=== PATIENT | male | born 1990 | race Hispanic/Latino ===

== ENCOUNTER 2019-04-07 | Emergency (ER) | payer OTHER ==
[2019-04-07 14:27] LABS: HEMATOCRIT 47.3 % (39.0-50.0); HEMOGLOBIN 15.9 g/dl (14.0-18.0); IMMATURE GRANULOCYTES 0.2 % (0.0-5.0); MEAN CELL VOLUME 89.6 fL CALC (80.0-100.0); MEAN CORPUSCULAR HGB 30.1 pG CALC (26.0-32.0); MEAN CORPUSCULAR HGB CONC 33.6 g/L CALC (32.0-36.0); NEUT# 5.26 thou/uL (1.82-7.42); RED BLOOD COUNT 5.28 mill/uL (4.70-6.10); RED CELL DISTRI WIDTH 12.5 % (11.5-15.5)
[2019-04-07 14:51] LABS: ALBUMIN 5.1 g/dL (3.2-5.0); ALKALINE PHOSPHATASE 129 u/l (38-126); AMYLASE 190 u/l (30-110); ANION GAP 20 (6-22 (CALC)); BILIRUBIN, TOTAL 0.4 mg/dL (0.0-1.4); BUN 5 mg/dL (9-20); BUN/CREATININE RATIO 6 (12-20 (CALC)); CARBON DIOXIDE 23 mmol/l (22-30); CHLORIDE 105 mmol/l (95-108); CPK 236 u/l (52-200); CREATININE 0.8 mg/dL (0.7-1.3); GFR > 60 ML/MIN (>=60 (CALC)); GFR FOR AFR.AMER. > 60 ML/MIN (>=60 (CALC)); LIPASE 90 u/l (23-300); MAGNESIUM 2.1 mg/dL (1.6-2.3); POTASSIUM 4.2 mmol/l (3.5-5.1); SGOT/AST 41 u/l (17-59); SODIUM 144 mmol/l (137-146); TOTAL PROTEIN 9.4 g/dL (6.3-8.2)
[2019-04-07 14:56] LABS: ACT PARTIAL THROMBO TIME 27.6 SECONDS (20.0-32.5); PROTHROMBIN TIME 10.4 SECONDS (9.0-12.5)
[2019-04-07 15:03] LABS: ETHYL ALCOHOL 430 mg/dl (0-30)
[2019-04-07 17:37] LABS: URINE BILIRUBIN - DIPSTICK NEGATIVE (NEGATIVE); URINE BLOOD DIPSTICK NEGATIVE (NEGATIVE); URINE COLOR YELLOW; URINE GLUCOSE - DIPSTICK NEGATIVE (NEGATIVE); URINE KETONE NEGATIVE (NEGATIVE); URINE LEUK ESTERASE NEGATIVE (NEGATIVE); URINE NITRITE - DIPSTICK NEGATIVE (Negative); URINE PH 5.5 (4.5-8.0); URINE PROTEIN - DIPSTICK NEGATIVE (NEG-TRACE); URINE SPECIFIC GRAVITY 1.015; URINE UROBILINOGEN - DIPSTICK 0.2 E.U./dL (0.2)
[2019-04-07 17:41] LABS: COCAINE POSITIVE (NEGATIVE); TETRAHYDROCANNABIONOL NEGATIVE (NEGATIVE)
[2019-04-07 17:42] LABS: BARBITURATES NEGATIVE (NEGATIVE); METHADONE NEGATIVE (NEGATIVE); OXCYCODONE NEGATIVE (NEGATIVE); TRICYLIC ANTIDEPRESSANTS NEGATIVE (NEGATIVE)
== END 2019-04-07 23:01 | disposition left against medical advice (07) ==
DX: F10.121 Alcohol abuse with intoxication delirium (principal); F14.10 Cocaine abuse, uncomplicated; F13.10 Sedative, hypnotic or anxiolytic abuse, uncomplicated; Y90.8 Blood alcohol level of 240 mg/100 ml or more; Z91.19 Patient's noncompliance with other medical treatment and regimen; R40.20 Unspecified coma
CPT/HCPCS: J2060

== ENCOUNTER 2021-05-16 10:39 | Emergency (ER) | payer OTHER ==
[~2021-05-16] VITALS: Ht 170.2 cm; Wt 75.0 kg
[2021-05-16] MEDS ORDERED: ALPRAZOLAM1 MG PO (11:52)
[2021-05-16] MEDS ORDERED: PREDNISONE50 MG PO (12:46)
[2021-05-16] MEDS ORDERED: EPIPEN 2-P0.3 MG/0.3 IM (12:46)
[2021-05-16 13:02] VITALS: BP 110/70
== END 2021-05-16 13:11 | disposition home or self-care (01) ==
LOC: ED 10:39
DX: T63.441A Toxic effect of venom of bees, accidental (unintentional), initial encounter (principal); R60.0 Localized edema; L29.8 Other pruritus; F41.9 Anxiety disorder, unspecified

== ENCOUNTER 2021-12-01 16:51 | Emergency (ER) | payer OTHER ==
[~2021-12-01] VITALS: Ht 170.2 cm; Wt 79.5 kg
[~2021-12-01 16:51] MED LIST: ALPRAZOLAM1 MG PO; EPIPEN 2-P0.3 MG/0.3 IM; PREDNISONE50 MG PO
[2021-12-01 18:20] VITALS: BP 126/78
[2021-12-01 18:30] VITALS: BP 122/78
[2021-12-01 19:01] VITALS: BP 122/78
== END 2021-12-01 19:04 | disposition home or self-care (01) ==
LOC: ED 16:51
DX: H61.22 Impacted cerumen, left ear (principal); F41.9 Anxiety disorder, unspecified

== ENCOUNTER 2024-01-05 05:53 | Emergency (ER) | payer OTHER ==
[2024-01-05] VITALS (8 sets, daily range): BP systolic 13–132; BP diastolic 62–87
[~2024-01-05] VITALS: Ht 172.7 cm; Wt 78.0 kg
[~2024-01-05 05:53] MED LIST changes: +TAM75CAP PO
[2024-01-05] MEDS ORDERED: HYDROmorphone HCL 2 MG/AMP IM ONE (06:30)
[2024-01-05] MEDS ORDERED: COLCHICINE 0.6 MG/TAB PO ONE (06:30)
[2024-01-05] MEDS ORDERED: DEXAMETHASONE 2 MG/TAB TAB PO ONE (06:30)
[2024-01-05] MEDS ORDERED: ONDANSETRON 4 MG/TAB ODT PO ONE (06:30)
[2024-01-05] MEDS ORDERED: DECADRON4 MG PO (06:38)
[2024-01-05] MEDS ORDERED: MITIGARE0.6 MG PO (06:38)
[2024-01-05] MEDS ORDERED: PERCOCET 5/325M1 TAB PO (07:42)
== END 2024-01-05 07:48 | disposition home or self-care (01) ==
LOC: ED 05:53
DX: M10.072 Idiopathic gout, left ankle and foot (principal); F41.9 Anxiety disorder, unspecified